=== PATIENT | male | born 1985 | race Two or more races ===

== ENCOUNTER 2024-09-05 16:03 | Emergency (ER) | payer MEDICAID, SELFPAY ==
[2024-09-05 16:20] VITALS: BP 115/64; PULSE 70; RESP 18; TEMP 36.6; O2SAT 95; BMI 26.1
--- NOTE | 2024-09-05 16:24 | XR_ITS ---
Examination: PA lateral chest 2 views TECHNIQUE: Upright AP lateral chest 2 views Some date and time: September 05, 2024 1632 hours INDICATIONS: Upper thoracic wall pain 2 weeks FINDINGS: Normal heart size No pneumonia or pulmonary edema Osseous structures intact IMPRESSION: No active disease
--- NOTE | 2024-09-05 16:26 | PD.EDADULT ---
ED General RME/HPI General Chief complaint: General Adult/Misc Complain Stated complaint: L) AXILA/UNDER ARM/BACK PAIN X 3 WKS Time Seen by Provider: 09/05/24 16:15 Arrival date/time: 09/05/24 16:03 RME / HPI RME / HPI narrative: Patient is a 38-year-old male who presents to the emergency department with complaint of pain in his left upper back that radiates around to his left axilla. Pain is described as tingling and burning. Pain has been going on for approximately 2 weeks. States he went to the ER at another facility and they checked him and said he was okay. No chest pain. No shortness of breath. Related Data Previous Rx's ?Medication ?Instructions ?Recorded loratadine 10 mg tablet 10 mg PO QDAY #30 tabs 12/01/ gabapentin 300 mg capsule 300 mg PO TID PRN pain #20 caps 09/05/24 valacyclovir 1 gram tablet 1,000 mg PO TID 7 days #21 tabs 09/05/24 Allergies Allergy/AdvReac Type Severity Reaction Status Date / Time No Known Allergies Allergy Verified 09/05/24 16:07 ED Exam Narrative Physical exam: Constitutional: no acute distress, age appropriate, non-toxic Eyes: PERRL, conjunctivae w/o pallor, EOMI HENT: normocephalic, atraumatic. Oral mucosa moist Respiratory Effort: no stridor, effort normal, no retractions Breath sounds: Clear bilaterally; No rales, No rhonchi, No wheezing Cardiovascular: regular rhythm, S1 and S2 normal, no murmur Musculoskeletal: no deformities, no swelling, no LE edema Skin: warm, dry; approximately 2.5 cm area of clustered erythematous macules on the left upper back. There are no vesicles. Neurology: alert, oriented X 4. Normal gait. Moves all extremities spontaneously. Psychology: cooperative, normal mood Course Quality Measures none Orders Category Date Time Status XR chest 2V Stat Exams 09/05/24 16:24 Completed BMP [Basic Metabolic Panel] Stat Lab 09/05/24 16:45 Completed CBC Stat Lab 09/05/24 16:45 Completed Acyclovir [Zovirax] Med 09/05/24 16:25 Discontinued 800 mg PO X1 ONE Gabapentin [Neurontin] Med 09/05/24 16:24 Discontinued 300 mg PO X1 ONE Vital Signs Vital signs: Vital Signs Temperature 97.8 F 09/05/24 16:20 Pulse Rate 70 09/05/24 16:20 Respiratory Rate 18 09/05/24 16:20 Blood Pressure 115/64 09/05/24 16:20 Pulse Oximetry (%) 95 09/05/24 16:20 Oxygen Delivery Method Room Air 09/05/24 16:20 MDM Patient data External records reviewed:: [facility] previous records Clinical information provided by:: patient Social determinants that could affect healthcare access:: none Patient has the following chronic illnesses:: None How is presenting disease/condition affected by chronic disease/condition?: no chronic disease Evaluation data The following diagnostics were reviewed and interpreted by me:: lab results and radiology exam(s) Lab and/or radiology exams considered but not ordered:: None Interpretation Summary: CBC shows no leukocytosis or anemia CMP shows no electrolyte abnormalities, no LUCIA. Chest x-ray shows no infiltrate, effusion, or pneumothorax. My independent interpretation Medications Medications considered but not ordered:: N/A Medication administrations:: Medication Administration History Discontinued Medications Acyclovir (Acyclovir 800 Mg Tablet) 800 mg PO X1 ONE Stop: 09/05/24 16:26 Last Admin: 09/05/24 16:38 Dose: 800 mg Documented By: MIGUEL Gabapentin (Gabapentin 300 Mg Capsule) 300 mg PO X1 ONE Stop: 09/05/24 16:25 Last Admin: 09/05/24 16:38 Dose: 300 mg Documented By: MIGUEL See above Consultations Consultation(s) initiated? (list below): No Diagnosis Differential Diagnosis ED Complaint MDM: Shingles, chronic pain, eczema, dermatitis, varicella Most likely diagnosis given after review of the tests above:: Shingles Admission Indicated Admission indicated?: not indicated Explain why admission is indicated or not indicated:: Stable for outpatient management Admission Request Was there a request for admission?: No Disposition Plan Disposition Plan: Discharge Discharge Attestation Discharge Attestation: The patient and all family members were given an opportunity to ask questions and understood the discharge instructions. Discharge instructions specifically effects, indications for sooner follow up or return to the emergency department, and the expected course of current diagnosis. Patient condition: Stable Medical Decision Making MDM Narrative MDM Narrative: Patient presents with burning tingling type pain in his left upper back and left underarm. There are some nonvesicular erythematous lesions on the left side of the upper back. Given that his symptoms occur along the C8 dermatome, this is suspicious for shingles. Will plan to treat as such. Labs reassuring, chest x-ray normal. Rx sent for Valtrex and gabapentin. Counseled to follow-up with primary care. Return to ED precautions given. Differential Diagnosis Differential Diagnosis: Shingles, chronic pain, eczema, dermatitis, varicella Lab Data 09/05/24 16:45 09/05/24 16:45 Labs: Lab Results 09/05/24 Range/Units 16:45 WBC 5.9 (3.8-10.6) Thou/mm3 RBC 5.12 (4.50-5.90) Miln/mm3 Hgb 15.2 (13.5-16.0) g/dL Hct 42.1 (41.0-53.0) % MCV 82 (80-100) fL MCH 29.7 (25.0-35.0) pg MCHC 36.1 (31.0-37.0) g/dl RDW Std Deviation 36.4 (35.1-43.9) fL Plt Count 210 (140-440) Thou/mm3 Neut % (Auto) 54 (37-80) % Lymph % (Auto) 30 (10-50) % Hamlin % (Auto) 11 (0-12) % Eos % (Auto) 4 (0-10) % Baso % (Auto) 1 (0-2.5) % Neut # (Auto) 3.2 (1.8-7.7) Thou/mm3 Lymph # (Auto) 1.8 (1.0-4.8) Thou/mm3 Hamlin # (Auto) 0.7 (0.0-0.8) Thou/mm3 Eos # (Auto) 0.3 (0.0-0.5) Thou/mm3 Baso # (Auto) 0.0 (0.0-0.2) Thou/mm3 Immature Gran # (Auto) 0.02 H (0.00-0.00) Thou/mm3 Absolute Nucleated RBC 0.00 (0.00-0.00) Thou/mm3 Immature Gran % 0 (0-0) % Nucleated RBC % 0 (0) /100 WBC Sodium 143 (136-145) mMol/L Potassium 4.0 (3.4-5.1) mMol/L Chloride 106 (98-107) mMol/L Carbon Dioxide 30.8 (20.0-31.0) mMol/L Anion Gap 6 L (7-16) BUN 19 (9-23) mg/dL Creatinine 1.1 (0.6-1.3) mg/dL Estim Creat Clear Calc 90.2 (>60) mL/min eGFR > 60 (60 - ) See Note BUN/Creatinine Ratio 17 (12-20) Ratio Glucose 83 (74-106) mg/dL Calculated Osmolality 286 (275-295) Calcium 9.1 (8.3-10.6) mg/dL Discharge Plan Plan Patient Disposition: HOME (Self Care) Prescriptions/Referrals Prescriptions/Med Rec: New valacyclovir 1 gram tablet 1,000 mg PO TID 7 Days Qty: 21 0RF gabapentin 300 mg capsule 300 mg PO TID PRN (Reason: pain) Qty: 20 0RF No Action loratadine 10 mg tablet 10 mg PO QDAY Qty: 30 0RF Referrals: No Primary/Family,Physician [Primary Care Provider] - In 1 week Problem List Clinical Impression: Shingles Patient/Caregiver Discharge Instructions Education Materials: ED Shingles (Herpes Zoster) Additional Instructions: Follow-up with your PCP within 1 week. Return to the ED at anytime for new or worsening symptoms. Take medications as prescribed. Print Language: Kyrgyz Stand Alone Forms: [employer] Info., Patient Portal Info Letter
[2024-09-05] MEDS: GABAPENTIN 300 MG CAPSULE PO (16:38)
[2024-09-05] MEDS: ACYCLOVIR 800 MG TABLET PO (16:38)
[2024-09-05 17:19] LABS: Basophils % (Auto) 1 % (0-2.5); Eosinophils # (Auto) 0.3 Thou/mm3 (0.0-0.5); Eosinophils % (Auto) 4 % (0-10); Hematocrit 42.1 % (41.0-53.0); Hemoglobin 15.2 g/dL (13.5-16.0); Immature Granulocytes % (Auto) 0 % (0-0); Immature Granulocytes Auto 0.02 Thou/mm3 (0.00-0.00); Lymphocytes # (Auto) 1.8 Thou/mm3 (1.0-4.8); Lymphocytes % (Auto) 30 % (10-50); Mean Corpuscular HGB Conc 36.1 g/dl (31.0-37.0); Mean Corpuscular Hemoglobin 29.7 pg (25.0-35.0); Mean Corpuscular Volume 82 fL (80-100); Monocytes # (Auto) 0.7 Thou/mm3 (0.0-0.8); Monocytes % (Auto) 11 % (0-12); Neutrophils # (Auto) 3.2 Thou/mm3 (1.8-7.7); Neutrophils % (Auto) 54 % (37-80); Nucleated Red Blood Cell % 0 /100 WBC (0); Platelet Count 210 Thou/mm3 (140-440); RDW Standard Deviation 36.4 fL (35.1-43.9); Red Blood Count 5.12 Miln/mm3 (4.50-5.90); White Blood Count 5.9 Thou/mm3 (3.8-10.6)
[2024-09-05 17:39] LABS: Anion Gap 6 (7-16); BUN/Creatinine Ratio 17 Ratio (12-20); Blood Urea Nitrogen 19 mg/dL (9-23); Calcium 9.1 mg/dL (8.3-10.6); Carbon Dioxide 30.8 mMol/L (20.0-31.0); Chloride 106 mMol/L (98-107); Creatinine (Component) 1.1 mg/dL (0.6-1.3); Estimated Creatinine Clearance 90.2 mL/min (>60); Glucose 83 mg/dL (74-106); Osmolality,Calculated 286 (275-295); Sodium 143 mMol/L (136-145); eGFR > 60 See Note
[2024-09-05 18:51] VITALS: BP 116/72; PULSE 61; RESP 18; TEMP 36.8; O2SAT 97
== END 2024-09-05 18:54 | disposition home or self-care (01) ==
PROVIDERS: Physician Assistant; Emergency Provider Emergency Medicine
DX: B02.9 Zoster without complications (principal); R07.89 Other chest pain
CPT/HCPCS: 36415; 71046; 80048; 85025; 99283; A9270

== ENCOUNTER 2024-10-17 18:01 | Emergency (ER) | payer MEDICAID, SELFPAY ==
[2024-10-17 19:16] VITALS: BP 122/58; PULSE 100; RESP 18; TEMP 36.9; O2SAT 96
--- NOTE | 2024-10-17 19:33 | PD.EDNV ---
Nausea/Vomit./Diarrhea-RME/HPI General Chief complaint: Nausea/Vomiting/Diarrhea Stated complaint: N/V/D SINCE LAST NIGHT Time Seen by Provider: 10/17/24 19:28 Arrival date/time: 10/17/24 18:01 38M with no significant PMH presents to ED with 2 days of N/V and non-bloody diarrhea. Limitations: no limitations Related Data Previous Rx's ?Medication ?Instructions ?Recorded loratadine 10 mg tablet 10 mg PO QDAY #30 tabs 12/01/22 gabapentin 300 mg capsule 300 mg PO TID PRN pain #20 caps 09/05/24 ondansetron 4 mg disintegrating 4 mg PO Q8H PRN nausea and 10/17/24 tablet vomiting #14 tabs Allergies Allergy/AdvReac Type Severity Reaction Status Date / Time No Known Allergies Allergy Verified 10/17/24 18:07 Review of Systems Review of Systems Systems Reviewed: All systems reviewed, normal except as documented Constitutional Constitutional: Reports system reviewed and no additional complaints, except as documented, Denies fever(s) and Denies headache(s) ENT Ears, Nose, Mouth, and Throat: Denies disequilibrium and Denies headache(s) Cardiovascular Cardiovascular: Reports system reviewed and no additional complaints, except as documented, Denies chest pain and Denies dyspnea Respiratory Respiratory: Reports system reviewed and no additional complaints, except as documented, Denies cough and Denies dyspnea Gastrointestinal Gastrointestinal: Reports system reviewed and no additional complaints, except as documented, Reports as per HPI, Denies abdominal pain, Reports diarrhea, Reports nausea and Reports vomiting Neurologic Neurologic: Reports system reviewed and no additional complaints, except as documented, Denies confusion, Denies disequilibrium and Denies headache(s) Psychiatric Psychiatric: Denies confusion Past Medical History Social History SMOKING STATUS: Never smoker ED Exam General Limitations: Present no limitations General appearance: Present alert and in no apparent distress Head Head exam: Present atraumatic Eye Eye exam: Present normal appearance, PERRL and EOMI ENT ENT exam: Present normal exam, normal oropharynx and mucous membranes moist Neck Neck exam: Present normal inspection, full ROM and trachea midline Chest Chest inspection: Present normal inspection and symmetric chest wall rise Respiratory Respiratory exam: Present normal lung sounds bilaterally Cardiovascular Cardiovascular exam: Present regular rate, normal rhythm and normal heart sounds Abdominal Exam Abdominal exam: Present soft and normal bowel sounds Extremities Exam Extremities exam: Present normal inspection and full ROM Back Exam Back exam: Present normal inspection and full ROM Neurological Exam Neurological exam: Present alert, oriented X3 and CN II-XII intact Psychiatric Psychiatric exam: Present normal affect and normal mood Skin Skin exam: Present warm, dry, intact and normal color Course Quality Measures none Orders Category Date Time Status CBC Stat Lab 10/17/24 19:54 Completed CMP [Comprehensive Metabolic Panel] Stat Lab 10/17/24 19:54 Completed Drug Screen,Urine Stat Lab 10/17/24 19:35 Received Lipase Stat Lab 10/17/24 19:54 Completed UA [Urinalysis] Stat Lab 10/17/24 19:35 Completed Ondansetron Odt [Zofran Odt] Med 10/17/24 19:29 Discontinued 4 mg PO X1 ONE Vital Signs Vital signs: Vital Signs Temperature 98.4 F 10/17/24 19:16 Pulse Rate 100 10/17/24 19:16 Respiratory Rate 18 10/17/24 19:16 Blood Pressure 122/58 L 10/17/24 19:16 Pulse Oximetry (%) 96 10/17/24 19:16 Oxygen Delivery Method Room Air 10/17/24 19:16 O2 at 96% on RA and WNLs Nausea/Vomiting/Diarrhea MDM Narrative MDM Narrative:: 38M with no significant PMH presents to ED with 2 days of N/V and non-bloody diarrhea. Physical exam reveals no ab tenderness. Patient is afebrile, calm, and alert. No leukocytosis. CMP unremarkable. UA no gross dehydration. Lipase normal. Likely viral gastroenteritis. PO challenge passed. Patient data External records reviewed:: [facility] previous records Clinical information provided by:: patient Social determinants that could affect healthcare access:: none Patient has the following chronic illnesses:: none How is presenting disease/condition affected by chronic disease/condition?: no chronic disease Evaluation data The following diagnostics were reviewed and interpreted by me:: lab results Lab and/or radiology exams considered but not ordered:: ordered Interpretation Summary: above Medications / Prescriptions Medications / Prescriptions considered but not ordered:: ordered Medication administrations:: Medication Administration History Discontinued Medications Ondansetron HCl (Ondansetron Odt 4 Mg Tabrap) 4 mg PO X1 ONE; Protocol Stop: 10/17/24 19:30 Last Admin: 10/17/24 19:43 Dose: 4 mg Documented By: OA above Consultations Consultation(s) initiated? (list below): No Diagnosis Nausea Differential Diagnosis: traveler's diarrhea, food poisoning, gastroenteritis, clostridium difficile infection, drug-induced nausea and vomiting and dehydration Most likely diagnosis given after review of the tests above:: gastroenteritis Admission Indicated Admission indicated?: not indicated Admission Request Was there a request for admission?: No Disposition Plan Disposition Plan: Discharge Discharge Attestation Discharge Attestation: The patient and all family members were given an opportunity to ask questions and understood the discharge instructions. Discharge instructions specifically effects, indications for sooner follow up or return to the emergency department, and the expected course of current diagnosis. Patient condition: Stable Discharge Plan Plan Patient Disposition: HOME (Self Care) Disposition Comment: Stable Prescriptions/Referrals Prescriptions/Med Rec: New ondansetron 4 mg tablet,disintegrating 4 mg PO Q8H PRN (Reason: nausea and vomiting) Qty: 14 0RF No Action loratadine 10 mg tablet 10 mg PO QDAY Qty: 30 0RF gabapentin 300 mg capsule 300 mg PO TID PRN (Reason: pain) Qty: 20 0RF Referrals: No Primary/Family,Physician [Primary Care Provider] - In 1 week Problem List Clinical Impression: Gastroenteritis Patient/Caregiver Discharge Instructions Education Materials: ED Diarrhea, Viral (Adult) Additional Instructions: Please follow-up with PCP within 24-48 hours and return immediately if symptoms worsen. Keep hydrated. Advance diet as tolerated. Print Language: Tamazight Stand Alone Forms: Patient Portal Info Letter DARRIUS/ZHANG Supervising Physician DARRIUS/ZHANG Supervising Physician: Dr. Celestin
[2024-10-17] MEDS: ONDANSETRON ODT 4 MG TABRAP PO (19:43)
[2024-10-17 20:02] LABS: Basophils % (Auto) 0 % (0-2.5); Eosinophils # (Auto) 0.2 Thou/mm3 (0.0-0.5); Eosinophils % (Auto) 2 % (0-10); Hematocrit 41.2 % (41.0-53.0); Hemoglobin 14.4 g/dL (13.5-16.0); Immature Granulocytes % (Auto) 0 % (0-0); Immature Granulocytes Auto 0.03 Thou/mm3 (0.00-0.00); Lymphocytes # (Auto) 0.8 Thou/mm3 (1.0-4.8); Lymphocytes % (Auto) 8 % (10-50); Mean Corpuscular Hemoglobin 29.6 pg (25.0-35.0); Mean Corpuscular Volume 85 fL (80-100); Monocytes # (Auto) 0.6 Thou/mm3 (0.0-0.8); Monocytes % (Auto) 6 % (0-12); Neutrophils # (Auto) 8.5 Thou/mm3 (1.8-7.7); Neutrophils % (Auto) 83 % (37-80); Nucleated Red Blood Cell % 0 /100 WBC (0); Platelet Count 200 Thou/mm3 (140-440); RDW Standard Deviation 38.5 fL (35.1-43.9); Red Blood Count 4.87 Miln/mm3 (4.50-5.90); White Blood Count 10.2 Thou/mm3 (3.8-10.6)
[2024-10-17 20:03] LABS: Collection Type, Urine Clean Catch
[2024-10-17 20:16] LABS: Bilirubin,Urine Negative (Negative); Blood,Urine 1+ (Negative); Clarity,Urine Clear (Clear/Hazy); Color,Urine Yellow (Lt Yel-Yel); Glucose, Urine Negative (Negative); Ketones,Urine Negative (Negative); Leukocyte Esterase,Urine Negative (Negative); Nitrite,Urine Negative (Negative); Protein,Urine Trace (Neg - Trace); RBC,Urine 7 /hpf (0-3); Squamous Epithelial Cell,Urine < 1 /hpf (0-5); Urobilinogen,Urine Negative mg/dL (0.0-1.0); WBC,Urine 1 /hpf (0-5)
[2024-10-17 20:27] LABS: Alanine Aminotransferase 36 U/L (10-49); Albumin, Serum 4.1 gm/dL (3.5-5.0); Albumin/Globulin Ratio 1.4 (1.2-2.2); Alkaline Phosphatase 60 U/L (46-116); Anion Gap 8 (7-16); Aspartate Amino Transferase 37 U/L (0-34); BUN/Creatinine Ratio 20 Ratio (12-20); Blood Urea Nitrogen 26 mg/dL (9-23); Calcium 8.3 mg/dL (8.3-10.6); Calcium (Corrected) 8.3 mg/dL (8.5-10.1); Carbon Dioxide 28.1 mMol/L (20.0-31.0); Chloride 106 mMol/L (98-107); Creatinine (Component) 1.3 mg/dL (0.6-1.3); Globulin 2.9 gm/dL (2.3-3.5); Glucose 89 mg/dL (74-106); Lipase 25 U/L (12-53); Osmolality,Calculated 286 (275-295); Sodium 142 mMol/L (136-145); eGFR > 60 See Note
[2024-10-17 22:37] LABS: Amphetamine/Methamp Scrn,U Negative (Negative); Barbiturate Screen,Urine Negative (Negative); Benzodiazepines Screen,Urine Negative (Negative); Benzoylecgonine Screen, Ur Negative (Negative); Fentanyl Screen,Urine Negative (Negative); Opiate Screen,Urine Negative (Negative); THC Screen,Urine Negative (Negative)
== END 2024-10-17 22:26 | disposition home or self-care (01) ==
PROVIDERS: Physician Assistant; Emergency Provider Emergency Medicine
DX: K52.9 Noninfective gastroenteritis and colitis, unspecified (principal)
CPT/HCPCS: 36415; 80053; 80307; 81001; 83690; 85025; 99283; Q0162

== ENCOUNTER 2024-11-19 14:26 | Emergency (ER) | payer MEDICAID, SELFPAY ==
--- NOTE | 2024-11-19 | XR_ITS ---
Examination: Right elbow 3 views Technique: Elbow AP, oblique, lateral 3 views Exam date and time: November 19, 2024 1615 hours INDICATIONS: Patient fell 5 weeks ago with injury of the elbow, elbow pain. FINDINGS: No fracture or dislocation. No foreign body IMPRESSION: No fracture or dislocation.
--- NOTE | 2024-11-19 19:24 | PD.EDADULT ---
ED General RME/HPI General Stated complaint: RIGHT ELBOW PAIN Time Seen by Provider: 11/19/24 19:18 Arrival date/time: 11/19/24 14:26 CC: Right elbow pain, onset 5 months ago after pruning extensively. Patient states he continues to have the pain has stopped pruning since then. Patient denies numbness or tingling in his fingertips no other complaints no OTC medicine taken. Localized pain is 1-2 out of 10 scale. Radiates from the elbow down into the forearm. No prior history of similar events. Related Data Previous Rx's ?Medication ?Instructions ?Recorded loratadine 10 mg tablet 10 mg PO QDAY #30 tabs 12/01/22 gabapentin 300 mg capsule 300 mg PO TID PRN pain #20 caps 09/05/24 ondansetron 4 mg disintegrating 4 mg PO Q8H PRN nausea and 10/17/24 tablet vomiting #14 tabs Allergies Allergy/AdvReac Type Severity Reaction Status Date / Time No Known Allergies Allergy Verified 10/17/24 18:07 Review of Systems Review of Systems Narrative Review of Systems: GEN: No fever, no chills, no weight loss EYES: No discharge, no visual changes, no pain HEENT: No ear pain, no congestion, no sore throat PULM: No shortness of breath, no cough, no congestion CV: No chest pain, no dyspnea on exertion, no palpitations GI: No nausea, no vomiting, no diarrhea, no pain, no constipation : No frequency, no urgency, no dysuria MUSC/SKEL: + joint pain, no back pain SKIN: No rash PSYCH: No hallucinations, no depression HEME/LYMPH: No easy bleeding or bruising tendencies NEURO: No weakness, no headache Past Medical History Social History SMOKING STATUS: Never smoker ED Exam Narrative Physical exam: [General: Not in any acute distress Head normocephalic HEENT: Within acceptable limits Neck is supple nontender Chest equal chest rise nontender to palpation Respiratory: Clear to auscultation no wheezes crackles or rubs CV: Rate rhythm is regular no murmurs rubs or clicks Abdomen is flat, soft nontender no masses positive bowel sounds all 4 quadrants Back: No CVA tenderness no spinous process tenderness from cervical spine thoracic and lumbar spine Skin: Intact no petechiae rash induration ulceration or crepitus Extremities: Right upper extremity, patient has pain with range of motion of the elbow there is a free range of motion without pops or clicks however it is painful. But not painful enough to need prompting. With direct pressure circumferentially around the forearm, all the pain resolves with range of motion of the elbow. Moving all other extremities against resistance cap refill less than 2 seconds neurosensory intact Neuro: Awake alert oriented x3 Glascow coma 15 no focal deficits] Course Quality Measures none Orders Category Date Time Status XR elbow comp RT min 3V Urgent Exams 11/19/24 Completed Discharge Plan Plan Patient Disposition: HOME (Self Care) Patient condition on transfer: Stable Prescriptions/Referrals Prescriptions/Med Rec: No Action ondansetron 4 mg tablet,disintegrating 4 mg PO Q8H PRN (Reason: nausea and vomiting) Qty: 14 0RF loratadine 10 mg tablet 10 mg PO QDAY Qty: 30 0RF gabapentin 300 mg capsule 300 mg PO TID PRN (Reason: pain) Qty: 20 0RF Referrals: Anibal Coy MD [Physician] - In 1 week No Primary/Family,Physician [Primary Care Provider] - In 1 week Godfrey Polanco MD [Physician] - In 1 week Problem List Clinical Impression: Lateral epicondylitis (tennis elbow) Patient/Caregiver Discharge Instructions Education Materials: ED Tennis Elbow Additional Instructions: Apply a Velcro forearm strap, avoid heavy wrist or elbow movement. Ibuprofen or Tylenol for pain. Print Language: Upper Sorbian Stand Alone Forms: [employer] Info., Work/School Release, Patient Portal Info Letter PA/ZHANG Supervising Physician PA/[employer] Supervising Physician: Arnaldo Vick ENP [facility] Clinical Information Provided by: patient Medical Records reviewed [facility] Meds/Rx considered, not ordered None Labs/Rad/Tests considered, not ordered None Chronic Illness/Social Conditions which may negatively complicate care or outcome(s)-explain: None or not applicable EKG EKG not done Labs Labs: none Imaging Imaging interpretation: interpreted by me Imaging Interpretation(s): Right elbow no fracture malalignment or dislocation as interpreted by me read by radiology Medication Administration(s) none Diagnosis Differential Diagnosis ED Complaint MDM: Tennis elbow elbow fracture elbow strain
== END 2024-11-19 19:35 | disposition home or self-care (01) ==
PROVIDERS: Emergency Provider Emergency Medicine
DX: M77.11 Lateral epicondylitis, right elbow (principal)
CPT/HCPCS: 73080; 99283